=== PATIENT | female | born 1990 | race Caucasian/White ===

== ENCOUNTER 2018-11-27 16:56 | Emergency (ER) | payer OTHER ==
[2018-11-27 17:07] VITALS: BP 136/85
--- NOTE | 2018-11-27 17:48 | ED Physician Documentation ---
History of Present Illness - Stated complaint Stated Complaint: FEVER/VOM/SORE THROAT - Chief complaint Chief Complaint: Heent - Additonal information Additional information: hx from pt healthy 28 y/o female doubt preg is breast feeding immunized as a child she and her family just moved from [place] and they are all sick she has fever sore throat and white spots on tonsils cough NV loose stools Review of Systems Constitutional: reports: Fever Ears: denies: Ear pain Nose: reports: Congestion Throat: reports: Sore throat Respiratory: reports: Cough (occasioanl) GI: reports: Nausea, Vomiting. denies: Diarrhea (loose stools) Skin: denies: Rash Immunocompromised: denies: Immunocompromised PD PAST MEDICAL HISTORY - Past Medical History Cardiovascular: None Respiratory: None Neuro: None Endocrine/Autoimmune: None GI: None TOURIST GUIDE: None : None HEENT: None Psych: None Musculoskeletal: None Derm: None - Past Surgical History Past Surgical History: No - Social History Does the pt smoke?: No Smoking Status: Never smoker Does the pt drink ETOH?: No - Immunizations Immunizations are current?: No PD ED PE NORMAL - Vitals Vital signs reviewed: Yes - General General: Alert and oriented X 3 - HEENT HEENT: PERRL, Ears normal. No: Pharynx benign (enlarged tonsils with exudate) - Neck Neck: Supple, no meningeal sign - Cardiac Cardiac: RRR - Respiratory Respiratory: No respiratory distress, Clear bilaterally - Derm Derm: Normal color, No rash - Extremities Extremities: No edema - Neuro Neuro: Alert and oriented X 3 Results - Vitals Vitals: Vital Signs - 24 hr 11/27/18 17:00 Temperature 36.5 C Heart Rate 86 Respiratory 18 Rate Blood Pressure 136/85 H O2 Saturation 97 Oxygen O2 Source Room air - Labs Labs: Laboratory Tests 11/27/18 17:00 Group A Strep Rapid Negative Departure - Departure Disposition: 01 Home, Self Care Clinical Impression: Exudative pharyngitis Condition: Good Instructions: ED Pharyngitis Viral Report Pending Comments: The rapid strep test was negative And official throat culture will also be run and the ER staff will call you if it is positive and antibiotics are needed. But for now it looks like this may be a viral infection - so the treatment is symptomatic - recommend throat lozenges and tylenol and motrin. Rest and drink plenty of fluids
== END 2018-11-27 18:15 | disposition home or self-care (01) ==
LOC: ED 16:56
DX: J02.9 Acute pharyngitis, unspecified (principal)
CPT/HCPCS: 87070; 87430; 99282